=== PATIENT | female | born 2000 | race Caucasian/White ===

== ENCOUNTER 2020-06-11 10:35 | Outpatient (CLI) | payer BC, SELFPAY ==
--- NOTE | ~2020-06-11 | US_ITS ---
EXAMINATION: US pelvic complete w TV DATE: 06/11/2020 11:56 INDICATION: Pelvic pain TECHNIQUE: Multiple transabdominal and endovaginal sonographic images of the pelvis were obtained. COMPARISON: 11/20/2018 FINDINGS: The uterus measures 6.4 x 2.8 x 3.5 cm. The endometrial complex measures 2 mm. The right ov miranda measures 2.2 x 1.3 x 1.8 cm. The left ovary measures 2.7 x 1.5 x 2.5 cm. There is normal vascular flow in the ovaries. There is a small amount of likely physiologic free fluid in the pelvis. IMPRESSION: 1. No sonographic correlate for the patient's symptoms. Reviewed, dictated and finalized at location A.
== END 2020-06-11 10:36 | disposition home or self-care (01) ==
PROVIDERS: PCP Pediatrics; Visit Provider Nurse Practitioner
DX: R10.2 Pelvic and perineal pain (principal)
CPT/HCPCS: 76830; 76856

== ENCOUNTER 2020-09-16 18:31 | Emergency (ER) | payer BC, SELFPAY ==
[2020-09-16 18:52] VITALS: BP 128/86; PULSE 100; RESP 18; TEMP 36.9; O2SAT 100
--- NOTE | 2020-09-16 18:52 | ED.URI ---
HPI - URI/Sore Throat General Chief Complaint: Upper Respiratory Infection Stated Complaint: cough/sore throat/sagastume Source: patient Mode of arrival: ambulatory Limitations: no limitations History of Present Illness HPI Narrative: Patient is a 20-year-old female who presents complaining of sore throat, cough and headache x2 days. She reports possible fever this a.m. She denies taking [id number] medications for pain. She has no known Covid exposure. She denies chest pain, shortness of breath or body aches at this time. MD elicited complaint: cough and sore throat Related Data Home Medications Medication Instructions Recorded Confirmed drospirenone-ethinyl estradiol 3 tablet PO DAILY 09/18/19 09/18/19 lamotrigine 200 mg PO DAILY 09/18/19 09/18/19 naltrexone 50 mg PO DAILY 09/18/19 09/18/19 plecanatide [Trulance] 3 mg PO DAILY 09/18/19 09/18/19 pregabalin 225 mg PO BID 09/18/19 09/18/19 quetiapine 400 mg PO DAILY 09/18/19 09/18/19 venlafaxine 150 mg PO DAILY 09/18/19 09/18/19 Allergies Allergy/AdvReac Type Severity Reaction Status Date / Time No Known Allergies Allergy Unknown Verified 09/16/20 18:56 Review of Systems Review of Systems: Narrative: CONSTITUTIONAL: Denies fever, chills, or sweats. EYES: Denies visual changes, redness, or discharge. ENT: Reports sore throat CARDIOVASCULAR: Denies chest pain, palpitations, or edema. RESPIRATORY: Reports cough, denies dyspnea. GASTROINTESTINAL: Denies abdominal pain, nausea, vomiting, or diarrhea. GENITOURINARY: Denies dysuria or hematuria. SKIN: Denies rash or itching. MUSCULOSKELETAL: Denies back pain, joint pain, or myalgia. NEUROLOGIC: Reports headache, denies numbness, dizziness, or weakness. PSYCHIATRIC: Denies anxiety or depression. [facility] Past Medical History Medical History (Updated 09/16/20 @ 18:57 by ESTIVEN Rueda) Anxiety and depression Eating disorder Surgical History Surgical History (Updated 09/16/20 @ 18:54 by ESTIVEN Rueda) No significant past surgical history Family History Family History (Updated 09/16/20 @ 18:54 by ESTIVEN Rueda) Other No significant family history Social History Social History (Updated 09/16/20 @ 18:54 by ESTIVEN Rueda) Smoking status: Never smoker Alcohol intake: never Substance use: never Gender identity (if verbalized by the patient): Female Exam Narrative: Exam Narrative: GENERAL: Well-appearing, well-nourished, and in no acute distress. HEAD: Normocephalic, atraumatic. EYES: No redness or drainage. ENT: Mucous membranes pink and moist. Nares clear. No rhinorrhea. Throat with mild erythema, no edema or exudate. Uvula midline. NECK: AROM. Supple. No lymphadenopathy. CHEST: No respiratory distress. HEART: Regular rate and rhythm. EXTREMITIES: Normal range of motion. SKIN: Warm, dry, no rash. NEURO: No focal deficits. Alert and oriented x3. Gait steady. PSYCH: Normal affect. No signs of depression or anxiety. Course Vital Signs Vital signs: Vital signs reviewed and stable. MDM - URI/Sore Throat MDM Narrative Medical decision making narrative: Patient's rapid Covid, rapid strep and influenza are all negative. Covid PCR sent at this time. Discussed with patient the need for quarantine until testing completed. Patient is aware if she develops chest pain or shortness of breath that she is to go to the emergency department for further evaluation. Patient is stable for discharge home with outpatient follow-up as needed. Differential Diagnosis Differential diagnosis: Likely upper respiratory infection, viral infection, influenza, pharyngitis and other (Covid) Lab Data Attestation: I reviewed the patient's lab results. Lab results narrative: Rapid strep negative, influenza negative, rapid Covid negative Critical Care Time Critical Care Time Critical Care Time: No Discharge Plan Discharge Clinical Impression: Upper respiratory infection Qualifier
[2020-09-17 16:31] LABS: SARS-CoV-2 RNA PCR Negative
== END 2020-09-16 19:09 | disposition home or self-care (01) ==
PROVIDERS: Emergency Provider Nurse Practitioner; PCP Pediatrics
DX: J06.9 Acute upper respiratory infection, unspecified (principal); Z20.822 Contact with and (suspected) exposure to COVID-19; F41.9 Anxiety disorder, unspecified; F32.9 Major depressive disorder, single episode, unspecified
CPT/HCPCS: 87081; 87426; 87804; 87880; 99213; C9803; G0463; U0003; U0005

== ENCOUNTER 2021-09-13 10:11 | Emergency (ER) | payer BC, SELFPAY ==
--- NOTE | 2021-09-13 10:39 | ED.URI ---
HPI - URI/Sore Throat General Chief Complaint: Upper Respiratory Infection Stated Complaint: Cough,Sore Throat,Body Aches Time Seen by Provider: 09/13/21 10:39 Source: patient Mode of arrival: ambulatory Limitations: no limitations History of Present Illness HPI Narrative: Iza Castro is a 21-year-old female with a PMH of depression, anxiety, substance abuse,IBS, who complains of sore throat headache tiredness difficulty swallowing decreased voice. Patient states she tested negative for COVID on a rapid test last night. 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 Related Data Home Medications Medication Instructions Recorded Confirmed drospirenone-ethinyl estradiol 3 tablet PO DAILY 09/18/19 09/13/21 lamotrigine 200 mg PO DAILY 09/18/19 09/13/21 naltrexone 50 mg PO DAILY 09/18/19 09/13/21 plecanatide [Trulance] 3 mg PO DAILY 09/18/19 09/13/21 pregabalin 225 mg PO BID 09/18/19 09/13/21 quetiapine 400 mg PO DAILY 09/18/19 09/13/21 venlafaxine 150 mg PO DAILY 09/18/19 09/13/21 Allergies Allergy/AdvReac Type Severity Reaction Status Date / Time No Known Allergies Allergy Unknown Verified 09/13/21 10:40 Review of Systems Review of Systems: CONSTITUTIONAL: Denies fever, chills, sweats. Fatigue EYES: Denies visual changes, redness, discharge. ENT: Denies rhinorrhea, has congestion, has sore throat, otalgia. CARDIOVASCULAR: Denies chest pain, palpitations, edema. RESPIRATORY: Denies dyspnea, wheezing, has cough GASTROINTESTINAL: Denies abdominal pain, nausea, vomiting, diarrhea. GENITOURINARY: Denies dysuria, hematuria, abnormal discharge SKIN: Denies rash or itching. NEUROLOGIC: Denies numbness, or focal weakness. PSYCHIATRIC: Denies anxiety or depression. [facility] Past Medical History Medical History Anxiety and depression Eating disorder IBS (irritable bowel syndrome) Surgical History Surgical History No significant past surgical history Family History Family History Other No significant family history Social History Social History Smoking status: Never smoker Alcohol intake: never Substance use: never Gender identity (if verbalized by the patient): Female Comments At time of signature, I agree with nursing past medical, surgical, social and family history. There is no relevant family history pertinent to the presenting complaint. Exam Narrative: GENERAL: This is a well-nourished, well-developed patient, in mild distress. HEAD: normocephalic, atraumatic. EYES: Sclera clear/white. Vision is grossly intact. EARS: External ears normal, auditory canals clear and without drainage, TMs normal without perforation. Hearing grossly intact. NOSE: External nose normal with nasal discharge, nares with redness, no rhinorrhea. THROAT: Mucous membranes moist, posterior pharynx erythema with some tonsillar edema with no exudate NECK: Neck supple, non-tender CARDIOVASCULAR: Regular rate and rhythm without murmurs, gallops, or rubs. RESPIRATORY: Clear to auscultation. Breath sounds equal bilaterally. No wheezes, rales, or rhonchi. GASTROINTESTINAL: Abdomen soft, SKIN: warm, intact with no suspicious lesions or rash, good texture and turgor. NEURO: awake, alert, and oriented to person, place and time. There were no obvious focal neurologic abnormalities. Steady gait EXTREMITIES: Normal range of motion. BACK: Nontender without deformity Course Course Emergency Course: Patient comes to [facility] with mild cough headache fatigue sore throat raspy voice this been going on for 2 to 3 days she took a rapid COVID test yesterday that was negative she has a history of strep, and works in a [employer]
[2021-09-13 10:41] VITALS: BP 120/71; PULSE 80; RESP 16; TEMP 36.6; O2SAT 99
[2021-09-14 23:20] LABS: SARS-CoV-2 RNA PCR Negative
== END 2021-09-13 11:29 | disposition home or self-care (01) ==
PROVIDERS: Emergency Provider Nurse Practitioner; PCP Physician Assistant
DX: J06.9 Acute upper respiratory infection, unspecified (principal); Z20.822 Contact with and (suspected) exposure to COVID-19; F41.9 Anxiety disorder, unspecified; F32.9 Major depressive disorder, single episode, unspecified
CPT/HCPCS: 87081; 87804; 87880; 99213; C9803; G0463; U0003; U0005

== ENCOUNTER 2022-01-02 15:00 | Emergency (ER) | payer BC, SELFPAY ==
[2022-01-02 15:08] VITALS: BP 130/83; PULSE 92; RESP 18; TEMP 36.3; O2SAT 99
--- NOTE | 2022-01-02 15:29 | ED.FEMALEGU ---
HPI - Female Genitourinary General Chief complaint: Urogenital-Female Stated complaint: uti complaints Time Seen by Provider: 01/02/22 15:23 Source: patient and RN notes reviewed Mode of arrival: ambulatory Limitations: no limitations History of Present Illness HPI Narrative: Patient presents today complaint of a 2-day history of dysuria, difficulty initiating a urine stream, urinary frequency, suprapubic pain. Denies hematuria, back pain, fever. She has not tried any medication for symptoms prior to arrival. She was on a course of clindamycin 3 to 4 weeks ago for an infected tooth. MD elicited complaint: dysuria Related Data Home Medications Medication Instructions Recorded Confirmed lamotrigine [Lamictal] 200 mg PO DAILY 01/02/22 01/02/22 naltrexone 50 mg PO DAILY 01/02/22 01/02/22 pregabalin 300 mg BID 01/02/22 01/02/22 quetiapine [Seroquel] 100 mg PO DAILY 01/02/22 01/02/22 spironolactone 50 mg TID 01/02/22 01/02/22 zolpidem 10 mg HS 01/02/22 01/02/22 Allergies Allergy/AdvReac Type Severity Reaction Status Date / Time No Known Allergies Allergy Unknown Verified 01/02/22 15:23 Review of Systems Review of Systems: CONSTITUTIONAL: Denies body aches, fever, chills, or sweats. EYES: Denies visual changes, redness, or discharge. ENT: Denies rhinorrhea, congestion, sore throat, or otalgia. CARDIOVASCULAR: Denies chest pain, palpitations, or edema. RESPIRATORY: Denies cough or dyspnea. GASTROINTESTINAL: Denies abdominal pain, nausea, vomiting, or diarrhea. GENITOURINARY: Denies hematuria.+ Dysuria, frequency, suprapubic pain SKIN: Denies rash, itching, or wounds. MUSCULOSKELETAL: Denies back pain, joint pain, or myalgia. NEUROLOGIC: Denies headache, numbness, tingling, or weakness. PSYCH: Denies depression or anxiety. [facility] Past Medical History Medical History Anxiety and depression Eating disorder IBS (irritable bowel syndrome) Surgical History Surgical History No significant past surgical history Family History Family History Other No significant family history Social History Social History Smoking status: Never smoker Alcohol intake: never Substance use: never Gender identity (if verbalized by the patient): Female Comments At time of signature, I have reviewed and agree with nursing past medical, surgical, social and family history unless otherwise noted. Please see nursing chart for further information. There is no relevant family history pertinent to the presenting complaint Exam Narrative: GENERAL: Well-appearing, well-nourished, and in no acute distress. HEAD: Normocephalic, atraumatic. EYES: EOMI. No redness or drainage. Conjunctivae normal. ENT: Mucous membranes pink and moist. NECK: Normal AROM. CHEST: No respiratory distress. Clear to auscultation. HEART: Regular rate and rhythm. No murmur appreciated. Normal peripheral pulses. ABDOMEN: Soft, nondistended, normal active bowel sounds. + Suprapubic tenderness.-CVAT MUSCULOSKELETAL: No bony tenderness. EXTREMITIES: Normal range of motion. No edema. SKIN: Warm, dry, no rash. Capillary refill normal. Normal skin turgor. NEURO: No focal deficits. Alert and oriented x3. Gait steady. PSYCH: Normal affect. No signs of depression or anxiety. Course Course Level of Care: Express Care Visit Vital Signs Vital signs: Vital Signs Temperature 97.3 F L 01/02/22 15:08 Pulse Rate 92 01/02/22 15:08 Respiratory Rate 18 01/02/22 15:08 Blood Pressure 130/83 01/02/22 15:08 Pulse Oximetry 99 01/02/22 15:08 Temperature 97.3 F L 01/02/22 15:08 Pulse Rate 92 01/02/22 15:08 Respiratory Rate 18 01/02/22 15:08 Blood Pressure 130/83 01/02/22 15:08 Pulse Oximetry 99 0
== END 2022-01-02 15:38 | disposition home or self-care (01) ==
PROVIDERS: Emergency Provider Nurse Practitioner; PCP Physician Assistant
DX: N30.00 Acute cystitis without hematuria (principal)
CPT/HCPCS: 81003; 87086; 99213; G0463

== ENCOUNTER 2022-10-27 17:55 | Emergency (ER) | payer BC, SELFPAY ==
--- NOTE | 2022-10-27 18:33 | ED.URI ---
HPI - URI/Sore Throat General Chief Complaint: Upper Respiratory Infection Stated Complaint: cough,nasal drainage Time Seen by Provider: 10/27/22 18:40 Source: patient Mode of arrival: ambulatory Limitations: no limitations History of Present Illness HPI Narrative: Iza is a 22-year-old female patient presenting to the clinic today with complaints of cough, nasal drainage, headache, and sore throat x4 days. 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 Did an at-home COVID test today and was negative. MD elicited complaint: sore throat and nasal congestion Related Data Home Medications Medication Instructions Recorded Confirmed lamotrigine 200 mg tablet 200 mg PO DAILY 01/02/22 01/02/22 (Lamictal) pregabalin 300 mg capsule 300 mg BID 01/02/22 01/02/22 quetiapine 100 mg tablet (Seroquel) 100 mg PO DAILY 01/02/22 01/02/22 spironolactone 50 mg tablet 50 mg TID 01/02/22 01/02/22 zolpidem 10 mg tablet 10 mg HS 01/02/22 01/02/22 Allergies Allergy/AdvReac Type Severity Reaction Status Date / Time No Known Allergies Allergy Unknown Verified 10/27/22 18:43 Review of Systems Review of Systems: Pertinent positives per HPI. Patient denies any fever, chills, rash, visual changes, dizziness, shortness of breath, chest pain, palpitations, nausea, vomiting, diarrhea, constipation, abdominal pain, or any urinary issues. [facility] Past Medical History Medical History Anxiety and depression Eating disorder IBS (irritable bowel syndrome) Surgical History Surgical History No significant past surgical history Family History Family History Other No significant family history Social History Social History Smoking status: Never smoker Alcohol intake: never Substance use: never Gender identity (if verbalized by the patient): Female Comments At the time of my signature, I reviewed and agree with the nursing past medical, surgical, social, and family history. There is no relevant family history pertinent to the patient complaint. Exam Narrative: General: Well-developed, well nourished, in no apparent distress Head: Normocephalic, atraumatic Eyes: Pupils equally round and reactive to light bilaterally, EOM intact, sclera and conjunctive clear, no discharge, lids normal Ears: TMs intact and dull, ear canals clear, no drainage, grossly hearing normal. Nose: Nares patent, clear nasal discharge, no inflammation, no sinus tenderness. Mouth: Oral pharynx without lesions or masses, good dentition, MMM. Oropharynx red, postnasal Neck: Supple, trachea midline, no enlargement of anterior or posterior cervical nodes, no thyroid masses or goiter palpable. Cardio: Regular rate and rhythm, s1 and s2 normal, no murmur appreciated. Resp: Clear to auscultation bilaterally, no rhonchi, rales, wheezing or rubs Course Course Emergency Course: Portions of this record may have been created with voice recognition software. Level of Care: Express Care Visit Vital Signs Vital signs: Vital Signs Temperature 36.4 C 10/27/22 18:38 Pulse Rate 87 10/27/22 18:38 Respiratory Rate 18 10/27/22 18:38 Blood Pressure 127/82 10/27/22 18:38 Pulse Oximetry 98 10/27/22 18:38 Oxygen Delivery Room Air 10/27/22 18:38 Temperature 36.4 C 10/27/22 18:38 Pulse Rate 87 10/27/22 18:38 Respiratory Rate 18 10/27/22 18:38 Blood Pressure 127/82 10/27/22 18:38 Pulse Oximetry 98 10/27/22 18:38 Oxygen Delivery Room Air 10/27/22 18:38 Vital signs reviewed MDM - URI/Sore Throat MDM Narrative Medical decision making narrative: At the time of visit patient is resting comfortably on the exam table. Strep screen was obtai
[2022-10-27 18:38] VITALS: BP 127/82; PULSE 87; RESP 18; TEMP 36.4; O2SAT 98
== END 2022-10-27 19:03 | disposition home or self-care (01) ==
PROVIDERS: Emergency Provider Nurse Practitioner Family; PCP Physician Assistant
DX: J02.8 Acute pharyngitis due to other specified organisms (principal)
CPT/HCPCS: 87081; 87880; 99213; G0463